=== PATIENT | female | born 1955 | race Caucasian/White ===

== ENCOUNTER 2016-09-05 14:06 | Inpatient (IN) | payer MEDICARE, OTHER ==
[2016-08-22 16:39] LABS: BASOPHILS 0.4 %; BASOPHILS ABSOLUTE 0.06 10/3/uL (0.0-0.16); EOSINOPHILS 0.6 %; EOSINOPHILS ABSOLUTE 0.09 10/3/uL (0.0-0.53); HEMATOCRIT 45.4 % (36.0-48.0); HEMOGLOBIN 14.9 g/dL (12.0-16.0); IMMATURE GRANULOCYTES 1.1 %; IMMATURE GRANULOCYTES ABSOLUTE 0.15 10/3/uL (0.0-0.11); LYMPHOCYTES 10.7 %; LYMPHOCYTES ABSOLUTE 1.51 10/3/uL (0.67-4.30); MANUAL DIFF NO %; MEAN CORPUS HGB CONC 32.8 g/dL (32.0-36.0); MEAN CORPUSCULAR HEMOGLOB 31.3 pg (26.0-34.0); MEAN CORPUSCULAR VOLUME 95.4 fL (80-100); MONOCYTES 6.7 %; MONOCYTES ABSOLUTE 0.94 10/3/uL (0.21-1.20); NEUTROPHILS 80.5 %; NEUTROPHILS ABSOLUTE 11.32 10/3/uL (2.02-8.40); PLATELET COUNT 361 10/3/uL (150-400); RBC DISTRIBUTION WIDTH 15.5 % (12.0-16.0); RED CELL COUNT 4.76 10/6/uL (4.0-5.6); WHITE BLOOD CELLS 14.1 10/3/uL (4.5-10.5)
[2016-08-22 16:42] LABS: PROTIME (NOT ORD) 13.1 SEC (12.0-14.5)
[2016-08-22 17:00] LABS: ALBUMIN 3.4 G/DL (3.5-5.0); CHLORIDE, SERUM 105 MMOL/L (96-112); CO2 (CARBON DIOXIDE) 25 MMOL/L (24-34); CREATININE 1.02 MG/DL (0.55-1.02); GFR AFRICAN AMERICAN 69 ML/MIN (>=60); GFR NON AFRICAN AMERICAN 59 ML/MIN (>=60); GLOBULIN 3.4 G/DL (2.5-4.1); POTASSIUM, SERUM 3.8 MMOL/L (3.5-5.3); SGOT(AST) 27 U/L (5-40); SGPT(ALT) 35 U/L (5-65); SODIUM, SERUM 141 MMOL/L (135-148); TOTAL BILIRUBIN 0.2 MG/DL (0-1.2); TOTAL PROTEIN 6.8 G/DL (6.0-8.5)
[2016-08-22 17:02] LABS: ALKALINE PHOSPHATASE 102 U/L (45-117); BUN (BLOOD UREA NITROGEN) 11 MG/DL (6-23); GLUCOSE, SERUM 160 MG/DL (60-99)
[2016-08-22 17:29] LABS: ASCORBIC ACID (UR NOT ORDER) NEG (NEG); BILIRUBIN, URINE NEGATIVE (NEG); KETONE, URINE NEGATIVE (NEG); LEUKOCYTE ESTERASE(NOT OR TRACE (NEG); WBC (NOT ORDERED) (RFLEX) 2 (0-5)
--- NOTE | ~2016-09-05 | OP ---
Record Of Operation [facility] [address] [place]. [address] NAME: BRANDY HARDEN : 55 STATUS : ADM IN [facility]#: [id number] AGE: 61 ADM/REG DATE : 09/05/16 MR#: [id number] REPORT SERV DATE: 09/06/16 DICTATED BY: SHEREEN HOLT DATE: 09/06/16 REPORT STATUS : Draft TRANSCRIBED BY: LUDA DATE: 09/06/16 DATE OF PROCEDURE: 09/05/2016 PREOPERATIVE DIAGNOSIS: Severe left hip degenerative joint disease. POSTOPERATIVE DIAGNOSIS: Severe left hip degenerative joint disease. PROCEDURE: Uncemented total hip arthroplasty, Tri-Lock. SIDE: Left. ONE PIECE EXPANSION MAKER HAND: ANESTHESIA: See chart. SIZE: See chart. ESTIMATED BLOOD LOSS: About 100 mL. INDICATIONS FOR SURGERY: PROCEDURE: The patient was taken to the operating room and placed supine on the table without incident. Anesthetic was induced per the anesthesiologist. A Gatica catheter was placed by the nurse in the standard sterile technique. The correct side for the procedure was identified by preoperative markings and matched with the consent form. All personnel in the room were in agreement regarding the procedure, patient, and side. The patient was then carefully positioned and carefully padded and prepped and draped in the normal sterile fashion. The patient received prophylactic preoperative antibiotics at the appropriate time. The preoperative x-ray was brought up on the monitor. Again, this was reviewed with the staff in the room. According with the preoperative plan, and angled, an anterolateral incision was made centered over the trochanter extending from proximal posterior to distal anterior. Electrocautery was used to maintain meticulous hemostasis. The IT band was split in line with its fibers. A Charnley retractor was placed over saline moistened laps. A standard anterolateral approach to the hip was carried out dissecting in line with the vastus medialis fibers lifting the inferior 20% of the vastus medialis, proximally the interior 20% of the gluteus medius and gluteus minimus tendons off the anterior capsule. Periosteal elevator was used to elevate soft tissue gently directly off the proximal anterior femoral bone. Appropriate retractors were carefully placed. Complete anterior capsulectomy was performed. The hip was then carefully dislocated with a combination of traction maneuver by the assistant corporate controller and scooping the ball out of the socket with a Hohmann. A femoral neck osteotomy was marked according to what had been preoperatively planned with a broach as a template. The distance for the femoral neck osteotomy was measured with a ruler. A femoral neck osteotomy was made with an oscillating saw under appropriate retraction. Meticulous hemostasis was again obtained. The leg was then brought up out of the anterior bag and Record Of Operation [facility] [address] [place]. [address] NAME: BRANDY HARDEN : 55 STATUS : ADM IN [facility]#: [id number] AGE: 61 ADM/REG DATE : 09/05/16 MR#: [id number] REPORT SERV DATE: 09/06/16 DICTATED BY: SHEREEN HOLT DATE: 09/06/16 REPORT STATUS : Draft TRANSCRIBED BY: LUDA DATE: 09/06/16 positioned with the lower extremity in external rotation and slight flexion. Acetabular retractors were placed carefully palpating to be sure that they were directly on the bone. The acetabular labrum was excised with electrocautery and rongeur. Pulvinar fat was removed with a large curette and rongeur and again meticulous hemostasis was obtained. Sequential reamers were used in the acetabulum to 1 mm. less than the final size which was chosen. This was felt to give excellent interference fit. The acetabular fossa was then copiously irrigated with pulsatile lavage and actual acetabular component was placed and impacted and checked to make sure it was down snug. The overall alignment was checked. The acetabular preschool assistant teacher was then removed. Screws were placed in the standard fashion. A drill, depth gauge and self tapping screw placement taking care not to plunge as the drill holes were carefully placed. A trial liner was then placed and attention directed back to the proximal femur. The leg was placed back into the anterior bag. The proximal femur was prepared using a box chisel following by a T-handled reamer to determine the intramedullary alignment. This was followed by sequential broaches up to the final broach. Once it was seated in the appropriate position, a Calcar reamer was used to plane the proximal femur. Trial reduction was then done with a trial prosthetic ball and neck. A straight edge was used to compare the tip of the trochanter to center of the ball relationship to what had been noted on the preoperative x-ray. Careful reduction was then done of the total hip. Palpation was done to ascertain and compare leg lengths by palpating the nonoperative leg and also by checking soft tissue tension. The stability of the hip was checked in full extension with full external rotation and in full flexion with adduction, flexion and internal rotation. The hip was then redislocated with a bone hook. The femoral trial and femoral broach were removed. The acetabulum was then prepared under appropriate retraction by removing the trial liner. A central hole eliminator was placed and tightened. The shell was irrigated out. The actual insert was placed and impacted and then checked to be sure it was down snug with a joker. The leg was again positioned in the bag. The proximal femur exposed, irrigated and the actual thermal prosthesis was taken from the account services representative and impacted. Once it was down, the trunnion was cleansed with a wet and dry lap and the prosthetic thermal head was placed and impacted and checked to be sure it was down snug. The acetabulum was irrigated and reduction was obtained. Again, we checked soft tissue tension, leg length and stability as described above. The hip was closed in a layered fashion with a 5 mm. Mersilene tape placed through a single drill hole in the proximal anterior/superior trochanter reattaching the gluteus medius and minimus fibers. The vastus lateralis, gluteus medius, and gluteus minimus were then closed in a sleeve. Drain was placed between the vastus and the IT band exiting distally anteriorly. The IT band was closed. Subcutaneous closure and skin closure were then obtained. A sterile dressing was applied. The patient was carefully positioned into a supine position and then awakened. The patient was then carefully transferred to the stretcher to be returned to the postoperative care unit without incident. COMPLICATION: None. SPECIMENS: Left femoral head. Record Of Operation [address] [place]. [address] NAME: BRANDY HARDEN : 55 STATUS : ADM IN [facility]#: [id number] AGE: 61 ADM/REG DATE : 09/05/16 MR#: [id number] REPORT SERV DATE: 09/06/16 DICTATED BY: SHEREEN HOLT DATE: 09/06/16 REPORT STATUS : Draft TRANSCRIBED BY: MODMaryam DATE: 09/06/16 WTB/MODL Shireen Holt M.D. / [id number] CC: KRANTHI MUNGUIA
[~2016-09-05 14:06] MED LIST: ABILIFY2 PO; ADDER10 PO; AMB10 PO; AMITIZA8 MCG PO; BENTYL20 PO; CARASPUDL PO; ENBREL50 MG/M1 SC; ESTRACE0.5 MG PO; ESTRACE1 MG PO; ESTRATESHS PO; ESTRATEST PO; FISH-EPA1000 MG PO; FLEX PO; FORTEO750 MG/3 M SC; IRON PO; LEUCOVOR CA5 MG PO; LEVAQUIN750 MG PO; LOTREL1 CA5 PO; MAX25 PO; METROGEL1 % TOP; MINOCIN100 PO; MOBIC15 MG PO; MOVANTIK25 MG PO; MSCONT100 PO; MSCONT60 PO; MTX2.5 IJ; MTX50 IM; MVI PO; NATURA2 OPH; NEUR100 PO; NEUR300 PO; NEUR600 PO; NORV25 PO; NUCYNTA100 MG PO; NUCYNTA75 MG PO; OPANA ER30 MG PO; P10 PO; P5 PO; PCET PO; PERCOCET1 TA2 PO; PR12.5 PO; PRILO PO; PRISTIQ100 MG PO; PROTONIX PO; PROTONIX20 MG PO; PROVIGIL1 PO; PROVIGIL2 PO; REMICADE IV; ROXICODONE15 MG PO; SALAGEN5 M1 PO; SALAGEN5 MG PO; SYN075 PO; SYN1 PO; TRAZ100 PO; VALTREX5 PO; ZOFRAN4 PO; [UNRECOGNIZED DRUG - OTHER] PO; [UNRECOGNIZED DRUG - OTHER] PO
[2016-09-06 06:15] LABS: HEMOGLOBIN 11.4 g/dL (12.0-16.0)
[2016-09-06 06:18] LABS: INTERNATIONAL NORMAL RATI 1.1 UNITS (-); PROTIME (NOT ORD) 14.5 SEC (12.0-14.5)
[2016-09-06 06:29] LABS: BUN (BLOOD UREA NITROGEN) 7 MG/DL (6-23); CALCIUM, SERUM 8.1 MG/DL (8.5-10.4); CHLORIDE, SERUM 102 MMOL/L (96-112); CO2 (CARBON DIOXIDE) 27 MMOL/L (24-34); CREATININE 0.62 MG/DL (0.55-1.02); GFR AFRICAN AMERICAN 113 ML/MIN (>=60); GFR NON AFRICAN AMERICAN 97 ML/MIN (>=60); GLUCOSE, SERUM 139 MG/DL (60-99); POTASSIUM, SERUM 3.9 MMOL/L (3.5-5.3); SODIUM, SERUM 138 MMOL/L (135-148)
[2016-09-07 04:59] LABS: HEMATOCRIT 34.6 % (36.0-48.0); HEMOGLOBIN 11.3 g/dL (12.0-16.0)
[2016-09-07 05:05] LABS: INTERNATIONAL NORMAL RATI 3.3 UNITS (-)
[2016-09-07 05:11] LABS: PROTIME (NOT ORD) 33.4 SEC (12.0-14.5)
[2016-09-07] MEDS ORDERED: C2 PO (13:22)
[2016-09-07] MEDS ORDERED: PCET PO (13:22)
[2016-11-15] MEDS ORDERED: MTX50 IM (04:29)
== END 2016-09-07 16:41 | disposition home or self-care (01) | DRG 470 ==
LOC: SDC/OF 14:06 → 3JRC 22:15
PROVIDERS: Specialist
PROC: 0SR902A Replacement of Right Hip Joint with Metal on Polyethylene Synthetic Substitute, Uncemented, Open Approach (ICD-10-PCS; principal; 2016-09-05 15:45)
DX: M16.10 Unilateral primary osteoarthritis, unspecified hip (principal); J84.10 Pulmonary fibrosis, unspecified; Z99.81 Dependence on supplemental oxygen; M06.9 Rheumatoid arthritis, unspecified; I10 Essential (primary) hypertension; M79.7 Fibromyalgia; F41.9 Anxiety disorder, unspecified; F32.9 Major depressive disorder, single episode, unspecified; E03.9 Hypothyroidism, unspecified; Z28.21 Immunization not carried out because of patient refusal; K21.9 Gastro-esophageal reflux disease without esophagitis
CPT/HCPCS: 36415; 71020; 72170; 80048; 80053; 81001; 85014; 85018; 85025; 85610; 86850; 86900; 86901; 87641; 88304; 88311; 93005; 97110-GP; 97116-GP; 97161-GP; 97165-GO; 97535-GO; A9270-GY; C1713; C1776; G8978-CL-GP; G8979-CJ-GP; G8987-CK-GO; G8988-CJ-GO; J0690; J1170; J1885; J2250; J2274; J2405; J2550; J2710; J2795; J3010

== ENCOUNTER 2016-09-24 07:06 | Emergency (ER) | payer MEDICARE, OTHER ==
[~2016-09-24 07:06] MED LIST changes: +C2 PO
[2016-11-15] MEDS ORDERED: MTX50 IM (04:29)
== END 2016-09-24 09:33 | disposition home or self-care (01) ==
LOC: ER 07:06
DX: M25.551 Pain in right hip (principal); G89.4 Chronic pain syndrome; I10 Essential (primary) hypertension; Z79.899 Other long term (current) drug therapy
CPT/HCPCS: 73502-RT; 96374; 96375; 99284; J1170; J1885; J2360; J2405

== ENCOUNTER 2016-11-15 05:24 | Inpatient (IN) | payer MEDICARE, OTHER ==
--- NOTE | ~2016-11-15 | HP ---
History And Physical [address] [address] NAME: BRANDY HARDEN : 55 STATUS : ADM IN PAT#: [id number] AGE: 61 ADM/REG DATE : 11/15/16 MR#: [id number] REPORT SERV DATE: 11/15/16 DICTATED BY: SHEREEN HOLT DATE: 11/15/16 REPORT STATUS : Draft TRANSCRIBED BY: LUDA DATE: 11/15/16 DATE OF ADMISSION: 11/15/2016 CHIEF COMPLAINT: Right hip pain, instability. HISTORY OF PRESENT ILLNESS: This is a 61-year-old female who has had previous right total hip arthroplasty who bent over to pick something off the floor to about 90 degrees and popped her hip out. It was relocated and then became much easier for her to dislocate multiple times after that. She denies any significant pain or injury elsewhere. ALLERGIES: NONE. MEDICATIONS: See chart. PAST MEDICAL HISTORY: Hypertension, history of questionable lipoid pneumonia per the chart, chronic back and neck pain. PAST SURGICAL HISTORY: Unchanged from previous. SOCIAL HISTORY: Here with her . FAMILY HISTORY: No anesthetic complications. REVIEW OF SYSTEMS: As above. PHYSICAL EXAMINATION: GENERAL: She is alert and oriented x3, in no apparent distress. HEENT: Atraumatic and normocephalic. NECK: Supple. CHEST: Symmetric and nontender. LUNGS: Per AA evaluation. CV: Regular. ABDOMEN: Soft. No mass. EXTREMITIES: Both upper extremities and left lower extremity without acute trauma. Right lower extremity is short and rotated. Skin is intact. Compartment supple. 2+ pulses. NEURO: Sensorimotor without deficit. X-RAY: Dislocated right hip. ASSESSMENT: Right total hip recurrent dislocation, status post atraumatic, hyperflexion dislocation . PLAN: She cannot be relocated in the ER and was planned for open reduction and liner revision. Risks, benefits, etc., explained. We have discussed revision to a constrained liner. History And Physical [address] [address] NAME: BRANDY HARDEN : 55 STATUS : ADM IN PAT#: [id number] AGE: 61 ADM/REG DATE : 11/15/16 MR#: [id number] REPORT SERV DATE: 11/15/16 DICTATED BY: SHEREEN HOLT DATE: 11/15/16 REPORT STATUS : Draft TRANSCRIBED BY: MODL DATE: 11/15/16 WTB/LUDA Shireen Holt M.D. / [id number] CC: Tasha Perez D.O.
--- NOTE | ~2016-11-15 | OP ---
Record Of Operation [facility] [address] [place]. [address] NAME: BRANDY HARDEN : 55 STATUS : DIS IN PAT#: [id number] AGE: 61 ADM/REG DATE : 11/15/16 MR#: [id number] REPORT SERV DATE: 11/16/16 DICTATED BY: SHEREEN HOLT DATE: 11/16/16 REPORT STATUS : Draft TRANSCRIBED BY: LUDA DATE: 11/16/16 DATE OF PROCEDURE: 11/15/2016 PREOPERATIVE DIAGNOSIS: Recurrent instability, right hip. POSTOPERATIVE DIAGNOSIS: Recurrent instability, right hip. PROCEDURE: Right acetabular revision. INDICATIONS: A 61-year-old female, status post right total hip arthroplasty, who bent way over and dislocated her hip, and subsequent to that she had multiple dislocations easily subsequent to that time. She would not be relocated in the ER, this last time was indicated for acetabular revision and open reduction. DESCRIPTION OF PROCEDURE: The patient was taken to the operating room and placed supine on the table in normal fashion without incident. General anesthetic was induced per the anesthesiologist. The patient was carefully positioned, padded, prepped, and draped in a sterile fashion. Sharp dissection was made through the old incision with electrocautery through the fat. IT band was opened and all the anterior structures have been torn off the anterior trochanter. The stitches were there and the muscle was torn free. The hip was located in position. The hip was dislocated, and the prosthetic ball removed, and attention directed to the acetabulum where the acetabular liner was removed. Position was inspected for acetabular and femoral components. They were intact and well ingrown and not mobile. I placed a constrained liner and impacted it. A new ball was placed in the cleansed trunnion, the hip was relocated and checked to be sure it was down snug and the constrained liner was mounted into position and checked to be sure it was down snug. The wound was copiously irrigated, closed in layered fashion over medium ConstaVac drained. After repairing the anterior gluteus medius and minimus fibers through two drill holes into the anterior lateral trochanter with FiberWires. The wound dressed sterilely, patient wakened and taken to postanesthesia care without incident. COMPLICATIONS: None. SPECIMENS: None. ESTIMATED BLOOD LOSS: About 100 mL. WTB/MODL Shireen Holt M.D. / [id number] Record Of Operation [address] [place]. [id number] NAME: BRANDY HARDEN : 55 STATUS : DIS IN PAT#: [id number] AGE: 61 ADM/REG DATE : 11/15/16 MR#: [id number] REPORT SERV DATE: 11/16/16 DICTATED BY: SHEREEN HOLT DATE: 11/16/16 REPORT STATUS : Draft TRANSCRIBED BY: LUDA DATE: 11/16/16 CC: Tasha Perez D.O.
[2016-11-15 09:15] LABS: BASOPHILS 0.2 %; BASOPHILS ABSOLUTE 0.03 10/3/uL (0.0-0.16); EOSINOPHILS ABSOLUTE 0.12 10/3/uL (0.0-0.53); HEMATOCRIT 41.3 % (36.0-48.0); HEMOGLOBIN 13.1 g/dL (12.0-16.0); IMMATURE GRANULOCYTES 0.3 %; IMMATURE GRANULOCYTES ABSOLUTE 0.04 10/3/uL (0.0-0.11); LYMPHOCYTES 19.2 %; MANUAL DIFF NO %; MEAN CORPUS HGB CONC 31.7 g/dL (32.0-36.0); MEAN CORPUSCULAR HEMOGLOB 29.8 pg (26.0-34.0); MEAN CORPUSCULAR VOLUME 93.9 fL (80-100); MEAN PLATELET VOLUME 9.7 fL (9.2-13.0); MONOCYTES 9.7 %; MONOCYTES ABSOLUTE 1.21 10/3/uL (0.21-1.20); NEUTROPHILS 69.6 %; NEUTROPHILS ABSOLUTE 8.73 10/3/uL (2.02-8.40); PLATELET COUNT 377 10/3/uL (150-400); RBC DISTRIBUTION WIDTH 15.8 % (12.0-16.0); WHITE BLOOD CELLS 12.5 10/3/uL (4.5-10.5)
[2016-11-15 09:30] LABS: BUN (BLOOD UREA NITROGEN) 12 MG/DL (6-23); CALCIUM, SERUM 8.6 MG/DL (8.5-10.4); CHLORIDE, SERUM 110 MMOL/L (96-112); CO2 (CARBON DIOXIDE) 26 MMOL/L (24-34); GFR AFRICAN AMERICAN 130 ML/MIN (>=60); GFR NON AFRICAN AMERICAN 112 ML/MIN (>=60); GLUCOSE, SERUM 110 MG/DL (60-99); POTASSIUM, SERUM 3.9 MMOL/L (3.5-5.3); SODIUM, SERUM 141 MMOL/L (135-148)
[2016-11-15 09:37] LABS: PARTIAL THROMBO TIME 22.8 SEC (22.5-37.2); PROTIME (NOT ORD) 13.2 SEC (12.0-14.5)
[2016-11-15 10:13] LABS: ASCORBIC ACID (UR NOT ORDER) NEG (NEG); BILIRUBIN, URINE NEGATIVE (NEG); KETONE, URINE NEGATIVE (NEG); LEUKOCYTE ESTERASE(NOT OR NEG (NEG); WBC (NOT ORDERED) (RFLEX) 1 (0-5)
[2016-11-15] MEDS ORDERED: NUCYNTA50 MG PO (22:52)
[2016-11-15] MEDS ORDERED: MOBIC7.5 PO (22:53)
[2016-11-15] MEDS ORDERED: P5 PO (22:53)
[2016-11-15] MEDS ORDERED: AMOXIL500 MG PO (22:54)
[2016-11-15] MEDS ORDERED: NEUR600 PO (22:54)
[2016-11-15] MEDS ORDERED: ESTRACE1 MG PO (22:55)
[2016-11-15] MEDS ORDERED: LOTREL1 CA5 PO (22:55)
[2016-11-15] MEDS ORDERED: SALAGEN5 MG PO (22:55)
[2016-11-15] MEDS ORDERED: SYN1 PO (22:55)
[2016-11-15] MEDS ORDERED: VALTREX5 PO (22:56)
[2016-11-15] MEDS ORDERED: PROTONIX20 MG PO (22:56)
[2016-11-15] MEDS ORDERED: [UNRECOGNIZED DRUG - OTHER] PO (22:56)
[2016-11-15] MEDS ORDERED: MTX50 SC (23:03)
[2016-11-15] MEDS ORDERED: PRISTIQ100 MG PO (23:03)
[2016-11-15] MEDS ORDERED: AMB10 PO (23:04)
[2016-11-15] MEDS ORDERED: ZOFRAN4 PO (23:05)
[2016-11-15] MEDS ORDERED: OPANA ER30 MG PO (23:05)
[2016-11-15] MEDS ORDERED: LINZESS 72MCG PO (23:05)
[2016-11-15] MEDS ORDERED: FLEX PO (23:06)
[2016-11-15] MEDS ORDERED: CARASPUDL PO (23:06)
[2016-11-15] MEDS ORDERED: BENTYL20 PO (23:07)
[2016-11-15] MEDS ORDERED: FERROUS SULF325 M1 PO (23:08)
[2016-11-16 05:09] LABS: HEMATOCRIT 41.6 % (36.0-48.0); HEMOGLOBIN 13.4 g/dL (12.0-16.0)
[2016-11-16 05:11] LABS: PROTIME (NOT ORD) 13.3 SEC (12.0-14.5)
[2016-11-16 05:28] LABS: BUN (BLOOD UREA NITROGEN) 10 MG/DL (6-23); CALCIUM, SERUM 8.8 MG/DL (8.5-10.4); CHLORIDE, SERUM 106 MMOL/L (96-112); CO2 (CARBON DIOXIDE) 26 MMOL/L (24-34); CREATININE 0.56 MG/DL (0.55-1.02); GFR AFRICAN AMERICAN 117 ML/MIN (>=60); GFR NON AFRICAN AMERICAN 101 ML/MIN (>=60); POTASSIUM, SERUM 3.6 MMOL/L (3.5-5.3); SODIUM, SERUM 141 MMOL/L (135-148)
[2016-11-16 05:30] LABS: GLUCOSE, SERUM 155 MG/DL (60-99)
[2016-11-16] MEDS ORDERED: C5 PO (15:39)
[2016-11-16] MEDS ORDERED: PCET PO (15:39)
== END 2016-11-16 17:41 | disposition home or self-care (01) | DRG 468 ==
LOC: 3SO 05:24
PROVIDERS: Specialist
PROC: 0SW9XJZ Revision of Synthetic Substitute in Right Hip Joint, External Approach (ICD-10-PCS; 2016-11-14)
PROC: 0SP909Z Removal of Liner from Right Hip Joint, Open Approach (ICD-10-PCS; 2016-11-15)
PROC: 0SU909Z Supplement Right Hip Joint with Liner, Open Approach (ICD-10-PCS; 2016-11-15)
PROC: 0SP90JZ Removal of Synthetic Substitute from Right Hip Joint, Open Approach (ICD-10-PCS; 2016-11-15)
PROC: 0SR902Z Replacement of Right Hip Joint with Metal on Polyethylene Synthetic Substitute, Open Approach (ICD-10-PCS; principal; 2016-11-15 18:15)
DX: T84.020A Dislocation of internal right hip prosthesis, initial encounter (principal); M06.9 Rheumatoid arthritis, unspecified; I10 Essential (primary) hypertension; E03.9 Hypothyroidism, unspecified; K21.9 Gastro-esophageal reflux disease without esophagitis; F32.9 Major depressive disorder, single episode, unspecified
CPT/HCPCS: 71010; 72170; 73501-RT; 73502-RT; 80048; 81001; 85014; 85018; 85025; 85610; 85730; 87015; 87070; 87075; 87102; 87116; 87205; 88300; 88304; 96374; 97116-GP; 97161-GP; 97165-GO; 99284; 99285; A9270-GY; C1776; G8987-CJ-GO; G8988-CI-GO; J0690; J1170; J1885; J2250; J2270; J2405; J2710; J2795; J3010